=== PATIENT | male | born 1990 | race Hispanic/Latino ===

== ENCOUNTER 2018-05-11 13:49 | Emergency (ER) | payer OTHER ==
[2018-05-11] MEDS ORDERED: TETANUS/DIPHTHERIA TOXOID [ADULT] 0.5 ML VIAL IM ONE (14:28)
== END 2018-05-11 15:12 | disposition home or self-care (01) ==
LOC: EDH 13:49
DX: S62.91XA Unspecified fracture of right hand, initial encounter for closed fracture (principal); S60.414A Abrasion of right ring finger, initial encounter; Y04.1XXA Assault by human bite, initial encounter; Y93.89 Activity, other specified; Y92.89 Other specified places as the place of occurrence of the external cause; Y99.8 Other external cause status
CPT/HCPCS: 73130; 90471; 90714